=== PATIENT | female | born 1955 | race Caucasian/White ===

== ENCOUNTER 2020-10-07 21:01 | Inpatient (IN) | payer OTHER ==
[~2020-10-07] VITALS: Ht 167.6 cm; Wt 91.1 kg
[2020-10-07] MEDS ORDERED: SODIUM CHLORIDE 0.9% 1,000 ML IV ONE (21:30)
[2020-10-07 22:01] LABS: Basophils # (auto) 0 10 ^3/uL (0-0.2); Eosinophils # (auto) 0 10 ^3/uL (0-0.8); Lymphocytes # (auto) 1.3 10 ^3/uL (0.4-5.4); Monocytes # (auto) 0.6 10 ^3/uL (0-1.3); White Blood Cell 8.2 10^3/uL (4.4-10.8)
[2020-10-07 22:03] LABS: Basophils % (auto) 0.3 % (0.0-2.0); Hematocrit 38.1 % (36.0-46.0); Hemoglobin 12.1 g/dL (12.2-16.2); Lymphocytes % (auto) 15.9 % (10.0-50.0); Mean Corpuscular Hemoglobin 20.6 pg (28.0-32.0); Mean Corpuscular Hgb Conc. 31.8 g/dL (32.0-36.0); Mean Corpuscular Volume 64.8 fL (80.0-100.0); Neutrophils # (auto) 6.3 10 ^3/uL (1.6-8.6); Neutrophils % (auto) 76.8 % (37.0-80.0); Nucleated Red Blood Cells % 0.1 %; Red Blood Cells 5.88 10^6/uL (4.0-5.20); Red Cell Distribution Width 14.5 % (11.8-14.3)
[2020-10-07 22:18] LABS: Albumin 3.8 g/dL (3.4-5.0); Anion Gap 10 (5-15); Blood Urea Nitrogen 26 mg/dL (7-18); Calcium 9.2 mg/dL (8.5-10.1); Carbon Dioxide 23 mmol/L (21-32); Chloride 107 mmol/L (98-107); Glucose 106 mg/dL (74-106); Magnesium 2.2 mg/dL (1.6-2.6); Potassium 3.8 mmol/L (3.5-5.1); Sodium 140 mmol/L (136-145)
[2020-10-07 22:19] LABS: INR 1.03 (0.9-1.15)
[2020-10-07 22:20] LABS: Lactic Acid w/Reflex 2.2 mmol/L (0.4-2.0)
[2020-10-07 22:33] LABS: Urine Bacteria FEW /hpf (None Seen); Urine Blood Negative /uL (Negative); Urine Hyaline Cast MOD /lpf (0 - 2); Urine Mucus FEW (None Seen); Urine Specific Gravity 1.025 (1.001-1.035); Urine WBC 14 /hpf (0 - 5)
[2020-10-07 22:33] LABS: Alanine Aminotransferase 39 U/L (13-56); Alkaline Phosphatase 116 U/L (45-117); Aspartate Aminotransferase 55 U/L (15-37); BUN/Creatinine Ratio 24.3; Bilirubin, Total 0.8 mg/dL (0.2-1.0); GFR African American 66 mL/min; GFR Non-African American 55 mL/min; Total Protein 7.9 g/dL (6.4-8.2)
[2020-10-07] MEDS ORDERED: DexAMETHasone SOD PHOS 10MG/1ML VIAL INJ IV ONE (23:30)
[2020-10-08] MEDS ORDERED: AZITHROMYCIN 500MG/ 250ML 250 ML IV ONE (00:45)
[2020-10-08] MEDS ORDERED: cefTRIAXone 1GM/50ML D5W 50 ML IV ONE (01:15)
[2020-10-08] MEDS ORDERED: dilTIAZem 25 MG/5 ML VIAL IV ONE (02:00)
[2020-10-08] MEDS ORDERED: MORPHINE SULF INJ 2 MG/ML SYRINGE 1ML IV PRN (03:00)
[2020-10-08] MEDS ORDERED: ACETAMINOPHEN 500 MG TAB PO PRN (03:00)
[2020-10-08] MEDS ORDERED: REMDESIVIR PER PHARMACY 0 ML IV SCH (03:00)
[2020-10-08] MEDS ORDERED: ONDANSETRON HCL 4 MG/2 ML VIAL IV PRN (03:00)
[2020-10-08] MEDS ORDERED: NITROGLYCERIN 0.4 MG SL TAB SL PRN (03:00)
[2020-10-08] MEDS ORDERED: TEMAZEPAM 15 MG CAP PO PRN (03:00)
[2020-10-08 05:00] VITALS: BP 102/70
[2020-10-08] MEDS ORDERED: PNEUMOCOCCAL VACC POLYS 25 MCG/0.5 ML VIAL IM ONE (06:15)
[2020-10-08] MEDS ORDERED: RIVA20TA PO (06:43)
[2020-10-08] MEDS ORDERED: BENZ100C97 PO (06:49)
[2020-10-08] MEDS ORDERED: BISO5TAB44 PO (06:49)
[2020-10-08] MEDS ORDERED: ALBUAER3 IN (06:49)
[2020-10-08] MEDS ORDERED: AML5T PO (06:49)
[2020-10-08] MEDS ORDERED: CICL160A2 IN (06:49)
[2020-10-08] MEDS ORDERED: FURO1TAB33 GT (06:49)
[2020-10-08] MEDS ORDERED: FAMO20TA10 GT (06:49)
[2020-10-08] MEDS: IPRATROPIUM BROMIDE HFA AER IN SCH ×4 (07:44→22:35)
[2020-10-08] MEDS: ALBUTEROL SULF HFA 90MCG INH 200DOSE IN PRN ×3 (07:44→22:36)
[2020-10-08] MEDS: PANTOPRAZOLE 40 MG TAB PO SCH (08:58)
[2020-10-08] MEDS: FUROSEMIDE 20 MG TAB PO SCH (08:58)
[2020-10-08] MEDS: ZINC SULFATE 220mg CAP or TAB PO SCH (08:58)
[2020-10-08] MEDS: CHOLECALCIFEROL (VITD3) 2,000 UNIT CAP/TAB PO SCH (08:59)
[2020-10-08] MEDS: ASCORBIC ACID 1,000 MG TAB PO SCH (08:59)
[2020-10-08 09:00] VITALS: BP 107/81
[2020-10-08] MEDS ORDERED: cefTRIAXone 1GM/50ML D5W 50 ML IV SCH (09:00)
[2020-10-08] MEDS ORDERED: AZITHROMYCIN 500MG/ 250ML 250 ML IV SCH (10:00)
[2020-10-08] MEDS ORDERED: ENOXAPARIN SOD 40 MG/0.4 ML SYRINGE SC SCH (10:00)
[2020-10-08] MEDS: guaiFENesin 200 MG/10 ML UD PO PRN ×3 (11:18→20:15)
[2020-10-08 13:00] VITALS: BP 111/62
[2020-10-08] MEDS ORDERED: DIGOXIN (250MCG/ML) 2 ML AMPULE IV ONE (15:00)
[2020-10-08 15:08] VITALS: BP 111/62
[2020-10-08] MEDS ORDERED: TOCILIZUMAB 400 MG in SODIUM CHL 0.9% 80 ML IV ONE (15:30)
[2020-10-08] MEDS ORDERED: IVERMECTIN 3 MG TAB PO ONE (16:00)
[2020-10-08] MEDS ORDERED: REMDESIVIR 200 MG in NS 210ml LOADING DOSE ADULT IV ONE (17:00)
[2020-10-08] MEDS: DIGOXIN (250MCG/ML) 2 ML AMPULE IV SCH (18:15)
[2020-10-08] MEDS: MUPIROCIN 2% OINT 15gm or 22gm EACHNOSTRI SCH (21:25)
[2020-10-08] MEDS: METOPROLOL TARTRATE 25 MG TAB PO SCH (21:26)
[2020-10-08 22:00] VITALS: BP 104/62
[2020-10-08] MEDS ORDERED: APIXABAN 5 MG TAB PO SCH (22:00)
[2020-10-09] MEDS: DIGOXIN (250MCG/ML) 2 ML AMPULE IV SCH ×2 (01:03→06:25)
[2020-10-09 05:00] VITALS: BP 108/64
[2020-10-09 06:17] LABS: Basophils # (auto) 0 10 ^3/uL (0-0.2); Basophils % (auto) 0.1 % (0.0-2.0); Eosinophils # (auto) 0 10 ^3/uL (0-0.8); Lymphocytes # (auto) 0.9 10 ^3/uL (0.4-5.4); Monocytes # (auto) 0.4 10 ^3/uL (0-1.3)
[2020-10-09 06:19] LABS: Hematocrit 35.2 % (36.0-46.0); Hemoglobin 11.3 g/dL (12.2-16.2); Lymphocytes % (auto) 19.4 % (10.0-50.0); Mean Corpuscular Hemoglobin 20.5 pg (28.0-32.0); Mean Corpuscular Hgb Conc. 32.1 g/dL (32.0-36.0); Mean Corpuscular Volume 63.9 fL (80.0-100.0); Monocytes % (auto) 8.9 % (0.0-12.0); Neutrophils # (auto) 3.3 10 ^3/uL (1.6-8.6); Neutrophils % (auto) 71.6 % (37.0-80.0); Nucleated Red Blood Cells % 0.1 %; Red Blood Cells 5.51 10^6/uL (4.0-5.20); Red Cell Distribution Width 14.3 % (11.8-14.3); White Blood Cell 4.6 10^3/uL (4.4-10.8)
[2020-10-09 06:36] LABS: Calcium 8.7 mg/dL (8.5-10.1); Potassium 3.7 mmol/L (3.5-5.1)
[2020-10-09 06:41] LABS: BUN/Creatinine Ratio 31.3; Bilirubin, Total 0.5 mg/dL (0.2-1.0); Total Protein 6.7 g/dL (6.4-8.2)
[2020-10-09] MEDS: IPRATROPIUM BROMIDE HFA AER IN SCH ×4 (07:45→22:33)
[2020-10-09 09:00] VITALS: BP 114/69
[2020-10-09] MEDS: MUPIROCIN 2% OINT 15gm or 22gm EACHNOSTRI SCH ×2 (09:35→22:33)
[2020-10-09] MEDS: ZINC SULFATE 220mg CAP or TAB PO SCH (09:35)
[2020-10-09] MEDS: FUROSEMIDE 20 MG TAB PO SCH (09:36)
[2020-10-09] MEDS: METOPROLOL TARTRATE 25 MG TAB PO SCH ×2 (09:36→22:33)
[2020-10-09] MEDS: PANTOPRAZOLE 40 MG TAB PO SCH (09:37)
[2020-10-09] MEDS: DOXYCYCLINE 100 MG TAB/CAP PO SCH ×2 (09:37→22:34)
[2020-10-09] MEDS: ASCORBIC ACID 1,000 MG TAB PO SCH (09:37)
[2020-10-09] MEDS: CHOLECALCIFEROL (VITD3) 2,000 UNIT CAP/TAB PO SCH (09:37)
[2020-10-09] MEDS ORDERED: AZITHROMYCIN 250 MG TAB PO SCH (10:00)
[2020-10-09] MEDS ORDERED: TOCILIZUMAB 400 MG in SODIUM CHL 0.9% 80 ML IV ONE (11:00)
[2020-10-09 13:00] VITALS: BP 108/54
[2020-10-09] MEDS ORDERED: ACETAMINOPHEN 325 MG TAB PO PRN (13:30)
[2020-10-09] MEDS ORDERED: REMDESIVIR 100mg 100 MG in SODIUM CHL 0.9% 230 ML IV SCH (15:00)
[2020-10-09 17:00] VITALS: BP 111/67
[2020-10-09] MEDS ORDERED: RIVAROXABAN 20 MG TAB PO SCH (18:00)
[2020-10-09] MEDS ORDERED: PNEUMOCOCCAL VACC POLYS 25 MCG/0.5 ML VIAL IM ONE (18:30)
[2020-10-09 20:00] VITALS: BP 112/67
[2020-10-09 22:00] VITALS: BP 112/67
== END 2020-10-10 02:43 | disposition short-term general hospital (02) | DRG 177 ==
LOC: EDBD 21:01 → ER 21:08 → TELE 10-08 03:03 → TELE-EAST 10-08 04:50
PROVIDERS: ADMIT Nurse Practitioner; ATTEND Internal Medicine
PROC: XW033E5 Introduction of Remdesivir Anti-infective into Peripheral Vein, Percutaneous Approach, New Technology Group 5 (ICD-10-PCS; principal; 2020-10-08)
PROC: XW033H5 Introduction of Tocilizumab into Peripheral Vein, Percutaneous Approach, New Technology Group 5 (ICD-10-PCS; 2020-10-08)
DX: U07.1 COVID-19 (principal); J12.82 Pneumonia due to coronavirus disease 2019; J96.00 Acute respiratory failure, unspecified whether with hypoxia or hypercapnia; N17.0 Acute kidney failure with tubular necrosis; R65.11 Systemic inflammatory response syndrome (SIRS) of non-infectious origin with acute organ dysfunction; I50.33 Acute on chronic diastolic (congestive) heart failure; I48.92 Unspecified atrial flutter; D68.69 Other thrombophilia; I48.91 Unspecified atrial fibrillation; D89.839 Cytokine release syndrome, grade unspecified; K21.9 Gastro-esophageal reflux disease without esophagitis; J45.909 Unspecified asthma, uncomplicated; I11.0 Hypertensive heart disease with heart failure; Z91.14 Patient's other noncompliance with medication regimen; Z88.5 Allergy status to narcotic agent; Z22.322 Carrier or suspected carrier of Methicillin resistant Staphylococcus aureus
CPT/HCPCS: 36415; 71045; 80053; 81001; 82728; 83605; 83615; 83735; 84443; 84484; 85025; 85379; 85610; 87040; 87081; 87426; 93005; 94640; 96361; 96365; 96368; 96375; 99291; G0378; J0696; J1100